=== PATIENT | male | born 1950 | race Caucasian/White ===

== ENCOUNTER 2020-07-21 20:41 | Outpatient (REF) | payer BC, SELFPAY ==
[2020-07-21 21:01] LABS: Calculated LDL 130 mg/dL (<100); Cholesterol 196 mg/dL (<200); HDL Cholesterol 53 mg/dL (40-60); Triglyceride 68 mg/dL (<150)
[2020-07-21 21:02] LABS: Hemoglobin A1C 5.8 % (<5.7)
== END 2020-07-21 20:42 | disposition home or self-care (01) ==
LOC: NCHCN 20:41
PROVIDERS: PCP Family Medicine; Visit Provider Family Medicine
DX: Z00.00 Encounter for general adult medical examination without abnormal findings (principal); E78.2 Mixed hyperlipidemia
CPT/HCPCS: 80061; 83036

== ENCOUNTER 2022-06-11 11:22 | Outpatient (CLI) | payer BC, SELFPAY ==
[2022-06-11 11:09] LABS: Abs Immature Grans 0.01 10^3/uL (0.0-0.06); Absolute Basophil Count 0.04 10^3/uL (0.0-0.2); Absolute Eosinophil Count 0.29 10^3/uL (0.0-0.7); Absolute Lymphocyte Count 1.58 10^3/uL (1.2-3.4); Absolute Monocyte Count 0.44 10^3/uL (0.1-0.8); Absolute Neutrophil Count 2.51 10^3/uL (1.2-6.7); Basophils % 0.8; HCT 43.1 % (40.0-50.0); HGB 14.3 g/dL (13.5-17.5); Immature Grans % 0.2; Lymphocytes % 32.4; MCH 31.8 pg (27.0-33.0); MCHC 33.2 % (32.0-36.0); MCV 96 fL (80-95); MPV 9.3 fL (8.0-11.0); Neutrophils % 51.6; Platelet Count 243 10^3/uL (130-400); RDW-SD 46.3 fL; WBC 4.87 10^3/uL (4.4-10.8)
[2022-06-11 11:46] LABS: ALT 33 U/L (16-63); AST 22 U/L (15-37); Albumin 3.5 g/dL (3.4-5.0); Alkaline Phosphatase 83 U/L (46-116); Anion Gap 4.8 mmol/L (3-11); BUN 17 mg/dL (7-18); Bilirubin, Total 0.5 mg/dL (0.2-1.0); CO2 31.2 mmol/L (21.0-32.0); CREATININE 0.9 mg/dL (0.70-1.30); Chloride 106 mmol/L (98-107); Estimated GFR 91.88 (mL/min/1.73m2); Glucose 84 mg/dL (74-106); Potassium 4.4 mmol/L (3.5-5.1); Sodium 142 mmol/L (136-145)
== END 2022-06-11 11:23 | disposition home or self-care (01) ==
LOC: LBO 11:23
PROVIDERS: PCP Family Medicine; Visit Provider Surgery
DX: E78.5 Hyperlipidemia, unspecified (principal); R13.10 Dysphagia, unspecified; R19.5 Other fecal abnormalities; K21.9 Gastro-esophageal reflux disease without esophagitis
CPT/HCPCS: 36415; 80053; 85025

== ENCOUNTER 2022-07-23 06:27 | Day surgery (SDC) | payer MEDICARE, SELFPAY ==
[2022-07-23 06:42] VITALS: BP 110/77; PULSE 57; RESP 16; TEMP 36.8; O2SAT 99
[2022-07-23] MEDS: Lactated Ringers 1,000 ML 80 ML IV (07:00)
--- NOTE | 2022-07-23 07:34 | W.ANESPRE ---
General Info Date of Service Date Performed: 07/23/22 Height: 5 ft 7 in Weight: 69.4 kg Body Mass Index (BMI): 23.9 Surgical Procedure: Operation Date: 07/23/22 07:40 Proposed Procedure Side Surgeon p Colonoscopy Ahsan Morris MD s Possible Hemorrhoid Banding Ahsan Morris MD Meds Allergies and Home Medications Allergies Allergy/AdvReac Type Severity Reaction Status Date / Time Sulfa (Sulfonamide Allergy Severe Skin Rash Verified 07/23/22 06:41 Antibiotics) Penicillins Allergy Unknown Verified 07/23/22 06:41 Home Medication Medication Instructions Recorded bisacodyl 5 mg tablet,delayed 5 mg PO ONCE #4 tabs 06/11/22 release (Dulcolax (bisacodyl)) ibuprofen 200 mg tablet (Advil) 200 mg PO Q6H PRN 06/11/22 polyethylene glycol 3350 17 17 g PO ONCE #238 grams 06/11/22 gram/dose oral powder Current Visit Medications: Current Medications Generic Name Dose Route Start Last Admin Trade Name Freq PRN Reason Stop Dose Admin Ringer's Solution 1,000 mls @ 80 mls/hr 07/23/22 06:00 07/23/22 07:00 IV 08/21/22 23:59 80 mls/hr INFUSION MONA Administration IV Miscellaneous Supplies 1 each 07/23/22 06:00 Iv Access IV 08/21/22 23:59 DIRECTED MONA Sodium Chloride 0 ml 07/23/22 06:00 Normal Saline Flush 10 Ml Syr IV 08/21/22 23:59 PRN PRN Sodium Chloride 0 ml 07/23/22 06:00 Normal Saline 10 Ml Vial IJ 08/21/22 23:59 DIRECTED PRN Sterile Water 0 ml 07/23/22 06:00 Water,Injection,Sterile 10 Ml Vial IJ 08/21/22 23:59 DIRECTED PRN PFSH Active Problems Active Problems: Problem Status Onset Code Seborrheic keratoses L82.1 Positive FIT (fecal immunochemical test) R19.5 Rectal bleeding K62.5 Medical History Medical History Dysphagia GERD (gastroesophageal reflux disease) Melanocytic nevus Mixed hyperlipidemia Solar lentigo Surgical History Surgical History History of colonoscopy (~2012) History of surgery on arm left Tobacco Smoking/Tobacco Use Status: Never Alcohol Alcohol Intake: current Alcohol intake frequency: a few times a week Substance Use Substance use type: does not use Vital Signs and Lab Results Vital Signs Most Recent Vital Signs in EMR: Most Recent Vital Signs Temp Pulse Resp BP Pulse Ox 36.8 C 57 L 16 110/77 99 07/23/22 06:42 07/23/22 06:42 07/23/22 06:42 07/23/22 06:42 07/23/22 06:42 Lab Results Blood Type / Crossmatch: No Data to Display Complete Blood Count: No Data to Display Complete Metabolic Panel: No Data to Display Liver Function Panel: No Data to Display Coagulation Panel: No Data to Display Cardiac Panel: No Data to Display Arterial Blood Gas: No Data to Display Venous Blood Gas: No Data to Display Pancreas Panel: No Data to Display Thyroid Panel: No Data to Display Infectious Disease: No Data to Display Blood Cultures: No Data to Display Toxicology Panel: No Data to Display Anesthesia Assessment and Plan Anesthesia History Personal History: No History of Anesthesia Complications Family History: No Family History of Anesthesia Complications Exercise Tolerance Exercise Tolerance: Metabolic Equivalents>4 Pertinent Negatives Pertinent Negatives: No Major Cardiovascular Symptoms or Complaints, No Major Pulmonary Symptoms or Complaints and No History of CVA/TIA Cardiac & Pulmonary Exam Cardiac Exam: Normal S1/S2 Heart Sounds Pulmonary Exam: Clear Bilateral Breath Sounds Implantable Cardiac Device Does patient have a Pacemaker or an ICD?: No Airway Exam Known Difficult Airway: No Mallampati Class: 2 Mouth Opening: Normal (> 3cm) Thyromental Distance: Greater than 3 cm Neck Range of Motion: Full ROM Neck Circumference: Normal Teeth Condition: Normal Dentition ASA Classification ASA Score: ASA 2 Emergency Case?: No NPO Status NPO Status: NPO Clears >2 hours, Solids >8 hours Anesthesia Plan Resuscitation Status: Full Code Anesthesia Technique: General Anesthesia Airway Planned: Natural Airway Monitors Used: Standard Monitors
[2022-07-23 07:46] VITALS: BMI 23.9
--- NOTE | 2022-07-23 08:19 | SCONE_ITS ---
Date of service: 07/23/22 Time of Service: 08:19 Assessment and Plan Assessment and plan (1) Positive FIT (fecal immunochemical test): Status: Acute Assessment and plan: 72-year-old man with positive fit test who needs colonoscopy. Separately he has acid reflux without risk factors and needs an EGD He is not worried about hemorrhoids and does not have interest in banding. History of Present Illness Narrative: 72-year-old man is very healthy. He is here for colorectal cancer screening. He does not have a family history of colon cancer. He is more than 10 years since his last colonoscopy. He had a positive fit test. He says that sometimes he sees a little bit of blood on toilet paper but assumes this is from h emorrhoids. Separately, he is developed acid reflux over the last couple of years which is something new for him. He does not have any of the usual or typical risk factors for acid reflux. He is not overweight. 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 He does think he has some mild hemorrhoidal disease but is adamant that it does not bother him. He never has pain or itching. PFSH All Active Problems Seborrheic keratoses (Acute) Positive FIT (fecal immunochemical test) (Acute) Rectal bleeding (Acute) Medical History Dysphagia GERD (gastroesophageal reflux disease) Melanocytic nevus Mixed hyperlipidemia Solar lentigo Surgical History History of colonoscopy (~2012) History of surgery on arm left Social History Smoking/Tobacco Use Status: Never Smoking risk assessment performed?: Yes Alcohol Intake: current Alcohol Intake frequency: a few times a week Substance use type: does not use Current gender identity: male Do you feel safe at home: Yes Do you feel safe in your relationship?: Yes Exam Narrative Exam Narrative: General: Nontoxic, comfortable and interactive Neuro: Alert and oriented x3 Psych: Appropriate mood and affect, good insight and understanding Chest: Nonlabored breathing, no wheezing Heart: Regular Results Last Vital Signs Temp 98.2 F 07/23/22 06:42 Pulse 57 L 07/23/22 06:42 Resp 16 07/23/22 06:42 BP 110/77 07/23/22 06:42 Pulse Ox 99 07/23/22 06:42
--- NOTE | 2022-07-23 08:26 | STOM_PTH ---
PATIENT: Mathew Segura LOC: [facility] U#:[id number] AGE/SX: 72/M ROOM: RE07/23/[address]: Ahsan Morris : 1950 BED: DIS: 07/23/2022 SPEC #: [id number] RECD: 07/23/22 12:41 STATUS: LEONIDES REIgnacio #: [id number] BERNARD: 07/23/22 08:[address]: Ahsan Morris DEPT: Surgical Specimen RECD BY: Kellen Perdomo ENTERED: 07/23/22 12:42 SP TYPE: STOMACH OTHR DR: Micah Julian Tissues: 1 - BIOPSY BOWEL 2 - STOMACH BIOPSY 3 - ESOPHAGUS BIOPSY 4 - ESOPHAGUS BIOPSY 5 - BIOPSY BOWEL Procedures: GROSS AND MICRO LEVEL 4 Comments: [id number]
--- NOTE | 2022-07-23 09:08 | W.PM.ENDDOP ---
Date of service: 07/23/22 Time of Service: 09:09 Endoscopy Report PROCEDURE DESCRIPTION: Procedures performed: 1. Esophagogastroduodenoscopy with cold forceps biopsies Pre-op diagnosis: GERD Postop diagnosis: Small type I sliding hiatal hernia, mild duodenitis Surgeon: Alexandra Anesthesia: Kiya Estimated blood loss: Scant Complications: None Indication for procedure: 72-year-old man with a couple of years of new?onset GERD with no usual risk factors. Findings: Mild duodenitis is present in the duodenal bulb. I took biopsies with cold forceps technique to confirm. Pylorus is patent. Stomach is normal visually. Cold forceps biopsies were taken in the antrum to rule out occult H. pylori. Body and fundus appeared normal visually. Retroflexion shows a small type I sliding hiatal hernia. The distal esophagus does not look visibly inflamed. The hernia slides about 2 cm. There is no visible evidence of Cohen's esophagus. I did take cold forceps biopsies routinely in the distal and midesophagus because of his symptoms. His vocal cords appeared normal visually. Procedure in detail: The patient gave written consent. He was taken to the endoscopy suite. A timeout was performed. Anesthesia was administered. He tolerated this well. A well?lubricated endoscope was passed without any difficulty or resistance through a patent pylorus into D2/D3. It was then slowly withdrawn. The findings are noted above. The patient tolerated the procedure well and was then turned for colonoscopy (see separate procedure note for details).
[2022-07-23 09:11] VITALS: BP 84/67; PULSE 52; RESP 18; TEMP 36.2; O2SAT 98
--- NOTE | 2022-07-23 09:15 | W.COLOREPORT ---
Date of service: 07/23/22 Time of Service: 09:15 Colonoscopy Report Procedure Description: Procedures performed: 1. Colonoscopy with snare polypectomy x1 Preoperative diagnosis: Surveillance colonoscopy Postoperative diagnosis: Rectal polyp Surgeon: Tavia Morris Anesthesia: Kiya Indication for procedure: Patient is a 72-year-old man without any symptoms and no significant family history. He did have a positive fit test and occasionally sees blood when he wipes. Findings: No significant findings in the right or left colons. No diverticuli. A 3 to 5 mm hyperplastic?appearing polyp was removed from the rectum with cold snare technique.? No significant hemorrhoidal disease. A small posterior anal skin tag is present likely sequela I from a prior fissure. Surveillance/follow-up recommendations: 10 years presuming the polyp comes back hyperplastic. He will be 82 years old and should do another colonoscopy at that time since he is so healthy. Complications: None Blood loss: Minimal Specimens:?? YES Quality of Prep:?? Good Procedure in detail: Written consent was obtained from the patient who was in agreement with the risks, benefits and indications of the procedure.? He was turned from upper endoscopy (see separate procedure note). Anesthesia was continued and I started the colonoscopy portion of the exam. Digital rectal exam and visual examination was performed. A well?lubricated colonoscope was advanced without difficulty all the way to the cecum identified by the ileocecal valve, and triangular folds and appendiceal orifice.? It was then slowly withdrawn.?? Retroflexion was performed in the rectum.? The findings/interventions are noted above. The scope was then removed and the patient tolerated the procedure well and was then taken back to the PACU in hemodynamically stable condition.
--- NOTE | 2022-07-23 09:15 | W.ANESPOSTOP ---
Postoperative Evaluation Date, Time and Location Date Performed: 07/23/22 Time Performed: 09:16 Patient Location: Day Surgery Unit Vital Signs Most Recent Imported Vital Signs: Most Recent Vital Signs Temp Pulse Resp BP Pulse Ox 36.2 C L 52 L 18 84/67 L 98 07/23/22 09:11 07/23/22 09:11 07/23/22 09:11 07/23/22 09:11 07/23/22 09:11 Pain Score Most Recent Pain Score: Most Recent Pain Score Pain Level 0 07/23/22 09:11 Assessment Mental Status: Awake (Alert & Oriented to Patient Baseline) Airway and Respiratory Function: Patent airway with normal (patient baseline) respiratory exam Cardiovascular Function: Hemodynamically Stable Hydration Status: Adequately Hydrated Nausea & Vomiting: No Nausea or Vomiting Pain: Pt. Denies Any Pain Peripheral Nerve Block: Patient did not receive a nerve block
[2022-07-23 09:16] VITALS: BP 102/82; PULSE 99; RESP 16; TEMP 36.6; O2SAT 99
[2022-07-23 09:52] VITALS: BP 117/73; PULSE 50; RESP 16; TEMP 36.6; O2SAT 100
== END 2022-07-23 10:00 | disposition home or self-care (01) ==
PROVIDERS: PCP Family Medicine; Visit Provider Student in an Organized Health Care Education/Training Program
PROC: 0DJD8ZZ Inspection of Lower Intestinal Tract, Via Natural or Artificial Opening Endoscopic (ICD-10-PCS; CPT 45378; principal; 2022-07-23 07:30)
PROC: 0DJ68ZZ Inspection of Stomach, Via Natural or Artificial Opening Endoscopic (ICD-10-PCS; CPT 43235; 2022-07-23 07:30)
DX: R19.5 Other fecal abnormalities (principal); K21.9 Gastro-esophageal reflux disease without esophagitis; K44.9 Diaphragmatic hernia without obstruction or gangrene; K29.80 Duodenitis without bleeding; K62.1 Rectal polyp; K64.4 Residual hemorrhoidal skin tags; K22.89 Other specified disease of esophagus
CPT/HCPCS: 45385; 43239; 88305

== ENCOUNTER → 2022-08-05 09:05 | Outpatient (BNVA) | payer MEDICARE, SELFPAY | PROVIDERS: PCP Family Medicine; Referring Provider Family Medicine; Visit Provider Surgery | DX: Z48.815 Encounter for surgical aftercare following surgery on the digestive system (principal) | CPT/HCPCS: 99212 ==

== ENCOUNTER 2023-02-11 14:41 | Outpatient (REF) | payer MEDICARE, SELFPAY ==
--- NOTE | 2023-02-11 13:45 | SKI_PTH ---
PATIENT: Mathew Segura LOC: [facility] U#:[id number] AGE/SX: 72/M ROOM: RE02/11/[address]: Micah Julian : 1950 BED: DIS: 02/11/2023 SPEC #: [id number] RECD: 02/12/23 12:22 STATUS: LEONIDES REIgnacio #: [id number] BERNARD: 02/11/23 13:[address]: Micah Julian DEPT: Surgical Specimen RECD BY: Kellen Perdomo Tissues: 1 - SKIN BIOPSY(SHAVE/PUNCH) Procedures: SKIN LEVEL 4 Comments: [id number]
== END 2023-02-11 14:42 | disposition home or self-care (01) ==
LOC: NCHCN 14:41
PROVIDERS: PCP Family Medicine; Visit Provider Family Medicine
DX: C44.519 Basal cell carcinoma of skin of other part of trunk (principal)
CPT/HCPCS: 88305

== ENCOUNTER 2023-03-05 12:45 | Outpatient (REF) | payer MEDICARE, SELFPAY ==
--- NOTE | 2023-03-04 11:30 | SKI_PTH ---
PATIENT: Mathew Segura LOC: [facility] #:[id number] AGE/SX: 72/M ROOM: RE03/05/[address]: Micah Julian : 1950 BED: DIS: 03/05/2023 SPEC #: [id number] RECD: 03/05/23 12:56 STATUS: LEONIDES REIgnacio #: [id number] BERNARD: 03/04/23 11:[address]: Micah Julian DEPT: Surgical Specimen RECD BY: Kellen Perdomo Tissues: 1 - SKIN BIOPSY(SHAVE/PUNCH) Procedures: SKIN LEVEL 4 Comments: [id number]
== END 2023-03-05 12:46 | disposition home or self-care (01) ==
LOC: NCHCN 12:45
PROVIDERS: PCP Family Medicine; Visit Provider Family Medicine
DX: C44.519 Basal cell carcinoma of skin of other part of trunk (principal)
CPT/HCPCS: 88305